=== PATIENT | female | born 1945 | race Caucasian/White ===

== ENCOUNTER 2016-08-10 08:16 | Emergency (ER) | payer MEDICARE, OTHER ==
[2016-08-10 08:47] VITALS: BP 117/68; PULSE 68; RESP 16; O2SAT 93
--- NOTE | 2016-08-10 09:11 | ED.REPORT ---
HPI-General Illness Date of Service August 10, 2016 ED Provider: Ronnie Solares MD Patient is a 70 year old female with a history of psychiatric illness who presents to the ED via EMS due to a mental health evaluation. The patient reports that she came to the hospital because she is "too far gone" and "can't live like this anymore". Patient states that she was anxious this morning and passed out when EMS arrived but EMS did not report any syncope. She states that she is freezing and her whole body including her feet are numb. The patient denies homicidal ideations or suicidal ideations. Patient reports hearing voices earlier today in her room. She is unable to give a pertinent medical history or complaint. Patient was detained by [facility] at [facility] in June for paranoid schizophrenia and psychosis. Nursing Notes Stated Complaint: ANXIETY Chief Complaint: Psychiatric Complaint Nursing Notes Reviewed: Yes Allergies: Coded Allergies: No Known Allergies (Verified , 02/04/08) General Time Seen by MD: 09:11 Chief Complaint Other (mental evaluation) Hx Obtained From: Patient Arrived By: Ambulance Onset Occurred: Onset unknown Similar Sx Previous: Yes Past Medical History Past Medical History unknown Ambulatory Status Independent Review of Systems Unable to Obtain ROS Patient condition, Mental status Physical Exam Vital Signs Vital Signs Date Time Temp Pulse Resp B/P Pulse Ox O2 Delivery O2 Flow Rate FiO2 08/10/16 13:51 70 08/10/16 08:47 36.3 68 16 117/68 93 Room Air Initial VS: Reviewed General/Constitutional: Awake, Alert Head / Eyes: Atraumatic, Normocephalic, PERRL, EOMI Respiratory / Chest: Atraumatic, Breath sounds NL, Breath sounds = bilat, No respiratory distress Cardiovascular: Heart rate NL, Regular rhythm, Heart sounds NL Skin: Atraumatic, Color NL, No rash, Warm, Dry Neurologic: Speech NL, No motor deficits, No sensory deficits motor and sensory was grossly normal tardive dyskinesia lip smaking Psychiatric: Not homicidal, Judgment/insight NL, Thought content NL Interpretation & Diagnostics Lab Results Interpretation Result Diagram: 08/10/16 0937 08/10/16 0937 Test 08/10/16 09:37 08/10/16 10:25 White Blood Count 12.0th/mm3 (3.8-10.1) Red Blood Count 3.75mil/mm3 (3.90-5.20) Hemoglobin 12.5g/dL (12.0-15.6) Hematocrit 37.4% (35.0-46.0) Mean Corpuscular Volume 99.7fL (81-100) Mean Corpuscular Hemoglobin 33.3pg (27.0-35.0) Mean Corpuscular Hemoglobin Concent 33.4% (32.0-37.0) Red Cell Distribution Width 13.0% (12.3-15.4) Platelet Count 225bil/L (150-400) Neutrophils (%) (Auto) 72.2% (40-74) Lymphocytes (%) (Auto) 16.1% (14-46) Monocytes (%) (Auto) 10.3% (4-12) Eosinophils (%) (Auto) 0.9% (0-5) Basophils (%) (Auto) 0.3% (0-3) Sodium Level 143mEq/L (134-144) Potassium Level 4.1mEq/L (3.5-5.2) Chloride Level 106mEq/L (97-108) Carbon Dioxide Level 23mmol/L (18-29) Blood Urea Nitrogen 15mg/dL (8-27) Creatinine 0.78mg/dL (0.57-1.00) Estimat Glomerular Filtration Rate 104mL/min (>59) Glucose Level 105mg/dL (60-99) Calcium Level 8.8mg/dL (8.5-10.1) Total Bilirubin 0.8mg/dL (0.0-1.2) Aspartate Amino Transf (AST/SGOT) 12U/L (0-50) Alanine Aminotransferase (ALT/SGPT) 9U/L (0-32) Alkaline Phosphatase 56U/L (25-165) Total Protein 6.2g/dL (6.4-8.4) Albumin 3.9g/dL (3.4-5.0) Thyroid Stimulating Hormone (TSH) 1.860uIU/mL (0.450-4.500) Hold Boyle Top Tube Received (Received) Alcohols < 10mg/dL (0-10) Hold Urine Received (Received) ECG Interpretation Time: 09:45 Interpreted by: ED physician Normal ECG Interpretation: Normal rate (70), Normal sinus rhythm Re-Eval/Medical Decision Med Decision/Clinical Course This patient is medically clear. She is seen and evaluated by her PACT mental health team and will be taken home by them. Return and follow-up precautions given Time of Eval: 10:14 Re-Evaluation/Progress Note: Patient was initially walking around and when entering the room, the patient states she felt weak and laid herself on the ground. Counseled Regarding: Diagnosis, Lab results Discharge & Departure Primary Impression: Acute situational disturbance Disposition: Home Discharge Condition All VS Reviewed: Yes Condition: Stable Additional Instructions: Follow-up with PACT team as planned. Return to ER for any new or concerning symptoms. Referrals: Alvarez Garay MD, PhD (PCP) Jonathan Attestation Portions of this note were transcribed by Giovanna Baca. I, Dr. Jeannie Childers personally performed the history, physical exam and medical decision-making; I reviewed and confirmed the accuracy of the information in the transcribed note. Signed by: Jonathan Naranjo, 08/10/16 and 2510 copies to: Alvarez Garay MD, PhD Ronnie Donovan DO August 10, 2016 09:11 Merlyn Baca August 10, 2016 09:27
[2016-08-10] MEDS ORDERED: LORazepam 1 mg Tablet PO ONE (09:20)
[2016-08-10 09:49] LABS: BASOPHILS % (AUTO) 0.3 % (0-3); EOSINOPHILS % (AUTO) 0.9 % (0-5); MONOCYTES % (AUTO) 10.3 % (4-12); Mean Corpuscular Hemoglobin 33.3 pg (27.0-35.0); Mean Corpuscular Volume 99.7 fL (81-100); NEUTROPHILS % (AUTO) 72.2 % (40-74); Platelet Count 225 bil/L (150-400)
[2016-08-10 13:51] VITALS: PULSE 70
[2016-08-11 11:53] LABS: APPEARANCE,URINE HAZY (CLEAR,HAZY); COLOR,URINE YELLOW (YELLOW)
[2016-08-11 11:54] LABS: OCCULT BLOOD,URINE NEGATIVE (NEGATIVE); PH,URINE 5.5 (5.0-8.0); UROBILINOGEN,URINE NORMAL (NORMAL)
== END 2016-08-10 13:52 | disposition home or self-care (01) ==
LOC: SED 08:16
DX: F43.0 Acute stress reaction (principal); F41.9 Anxiety disorder, unspecified; R20.0 Anesthesia of skin
CPT/HCPCS: 36415; 80053; 84443; 85025; 93005; 99284; G0480

== ENCOUNTER 2016-08-11 09:26 | Emergency (ER) | payer MEDICARE ==
--- NOTE | 2016-08-11 09:34 | ED.REPORT ---
HPI-Psychiatric Illness Date of Service August 11, 2016 ED Provider: Ronnie Donovan DO Patient is a 70 year old female with a history of psychiatric illness who returns to the emergency department today from [place] by EMS for altered mental status. The patient was seen here yesterday for similar symptoms and given Ativan. She was seen an evaluated by her PACT team who ended up taking her home. The patient is unable to provide much history at this time. She continually states, "take me back to [facility]." Patient was detained by [facility] at [facility] in June for paranoid schizophrenia and psychosis. Nursing Notes Stated Complaint: ALTERED MENTAL STATUS Nursing Notes Reviewed: Yes Allergies: Coded Allergies: No Known Allergies (Verified , 02/04/08) General Time Seen by MD: 09:29 Chief Complaint Bizarre behavior Hx Obtained From: Patient, EMS Unable to Obtain Hx: Patient condition, Mental status Arrived By: Ambulance Onset Occurred: Onset unknown Symptom Duration: Duration unknown Recent Healthcare: No recent hospitalization, Recent doctor visit Similar Sx Previous: Yes Risk-Psychiatric Illness Suicide Risk Stratification RF Statements: Risk factors reviewed Past Medical History Past Medical History Paranoid schizophrenia Psychosis Past Surgical History Unknown Smoking History Unknown if Ever Smoker Social History Lives at [place] Other Social History: Local resident Ambulatory Status Independent Review of Systems Unable to Obtain ROS Patient condition, Mental status Psychiatric: Reports: Change mental status Physical Exam Initial Vital Signs Vital Signs (First) Date Time Temp Pulse Resp B/P Pulse Ox O2 Delivery O2 Flow Rate FiO2 08/11/16 09:36 36.2 73 16 107/70 94 Room Air Initial VS: Reviewed Head / Eyes: Atraumatic, Normocephalic, PERRL ENT: Mucous membranes moist, Conjunctiva normal, No scleral icterus Neck: Supple, Non-tender, Full range of motion Respiratory: Breath sounds normal, Clear to auscultation, No respiratory distress Cardiovascular: Regular rate & rhythm, Heart sounds normal, Intact distal pulses Abdomen / GI: Soft, Non-tender, No guarding, No rebound, No distention Lymphatic: No lymphadenopathy Extremities: Vascular intact, Neuro intact, No swelling, No tenderness Skin: Warm, Dry, No cyanosis General/Constitutional: Awake histrionic, tearful, eyes closed. NEURO: Moving all 4 extremities Interpretation & Diagnostics Interpretation & Diagnostics: Urine dip negative Urine drug screen negative Lab Results Interpretation Result Diagram: 08/11/16 0955 08/11/16 0955 Test 08/11/16 09:55 08/11/16 12:03 White Blood Count 8.7th/mm3 (3.8-10.1) Red Blood Count 3.80mil/mm3 (3.90-5.20) Hemoglobin 12.4g/dL (12.0-15.6) Hematocrit 37.6% (35.0-46.0) Mean Corpuscular Volume 98.9fL (81-100) Mean Corpuscular Hemoglobin 32.6pg (27.0-35.0) Mean Corpuscular Hemoglobin Concent 33.0% (32.0-37.0) Red Cell Distribution Width 12.7% (12.3-15.4) Platelet Count 208bil/L (150-400) Neutrophils (%) (Auto) 64.0% (40-74) Lymphocytes (%) (Auto) 23.7% (14-46) Monocytes (%) (Auto) 9.2% (4-12) Eosinophils (%) (Auto) 2.6% (0-5) Basophils (%) (Auto) 0.3% (0-3) Sodium Level 144mEq/L (134-144) Potassium Level 4.2mEq/L (3.5-5.2) Chloride Level 107mEq/L (97-108) Carbon Dioxide Level 23mmol/L (18-29) Blood Urea Nitrogen 17mg/dL (8-27) Creatinine 0.73mg/dL (0.57-1.00) Estimat Glomerular Filtration Rate 113mL/min (>59) Glucose Level 104mg/dL (60-99) Calcium Level 8.7mg/dL (8.5-10.1) Total Bilirubin 0.4mg/dL (0.0-1.2) Aspartate Amino Transf (AST/SGOT) 14U/L (0-50) Alanine Aminotransferase (ALT/SGPT) 11U/L (0-32) Alkaline Phosphatase 50U/L (25-165) Total Protein 6.0g/dL (6.4-8.4) Albumin 3.7g/dL (3.4-5.0) Thyroid Stimulating Hormone (TSH) 1.670uIU/mL (0.450-4.500) Alcohols < 10mg/dL (0-10) Hold Urine Received (Received) Re-Eval/Medical Decision Med Decision/Clinical Course Patient is medically cleared. Patient is gravely disabled. Patient will be detained. Source of Hx: Old records, EMS Re-Evaluation/Progress : Time of Eval: 13:06 Re-Evaluation/Progress Note: The patient's PACT team is here to evaluate the patient. Consultation #1: Consulted With: shut off worker Call Returned at: 10:00 Note: Will contact the patient's PACT team Consultation #2: Consulted With: shut off worker Call Returned at: 15:13 Note: PACT spent 2 hours with the patient and were unable to get anywhere. PACT and ED radiation control worker agree with plan to page the [facility] to evaluate the patient. Counseled Regarding: Diagnosis, Lab results Discharge & Departure Impression: Primary Impression: Gravely disabled Discharge Condition All VS Reviewed: Yes Condition: Stable Referrals: Alvarez Garay MD, PhD (PCP) Care Transferred to: Dr. River Care Transferred at: 18:01 Jonathan Attestation Portions of this note were transcribed by Meredith Reid. I, Dr. Donovan personally performed the history, physical exam and medical decision-making; I reviewed and confirmed the accuracy of the information in the transcribed note. Signed by: Jonathan Yusuf, 08/11/2016 at 1800. copies to: Alvarez Garay MD, PhD Ronnie Donovan DO August 11, 2016 09:34 Meredith Reid August 11, 2016 09:39
[2016-08-11 09:36] VITALS: BP 107/70; PULSE 73; RESP 16; O2SAT 94
[2016-08-11] MEDS ORDERED: LORazepam 1 mg Tablet PO ONE ×3 (10:00→23:05)
[2016-08-11 10:06] LABS: BASOPHILS % (AUTO) 0.3 % (0-3); EOSINOPHILS % (AUTO) 2.6 % (0-5); MONOCYTES % (AUTO) 9.2 % (4-12); Mean Corpuscular Hemoglobin 32.6 pg (27.0-35.0); Mean Corpuscular Volume 98.9 fL (81-100); Platelet Count 208 bil/L (150-400)
[2016-08-11 15:14] VITALS: BP 123/70; PULSE 92; RESP 16; O2SAT 94
[2016-08-11 18:09] VITALS: BP 147/82; PULSE 104; RESP 22; O2SAT 96
[2016-08-11] MEDS ORDERED: Haloperidol 5 mg/mL Inj IM STA (20:18)
[2016-08-11 23:53] VITALS: BP 108/71; PULSE 72; RESP 16; O2SAT 93
== END 2016-08-12 00:23 | disposition other institution (70) ==
LOC: SED 09:26
DX: F23 Brief psychotic disorder (principal); F79 Unspecified intellectual disabilities; F20.0 Paranoid schizophrenia
CPT/HCPCS: 36415; 80053; 84443; 85025; 96372; 99285; G0480; J1630

== ENCOUNTER 2016-09-22 09:42 | Emergency (ER) | payer MEDICARE ==
[~2016-09-22] VITALS: Ht 165.1 cm; Wt 63.6 kg
[2016-09-22 09:46] VITALS: BP 129/87; PULSE 63; RESP 19; O2SAT 95
--- NOTE | 2016-09-22 09:52 | ED.REPORT ---
HPI-General Illness Date of Service Sep 22, 2016 ED Provider: Ronnie Donovan DO Patient is a 70 year old female with a hx of psychiatric illness, HTN, hypothyroid, and anxiety who presents to the ED via EMS from [facility] for the concern of new onset confusion. When EMS arrived she was naked, trying to run out of her room stating "I need to evacuate the animals ". Per EMS, she was combative en route. She is uncooperative upon exam and refuses to answer questions. She states "I need to let the animals out, the dogs and cats at [place]." She has been detained last June for Paranoid schizophrenia and psychosis. Nursing Notes Stated Complaint: CONFUSION Chief Complaint: Psychiatric Complaint Nursing Notes Reviewed: Yes Allergies: Coded Allergies: No Known Allergies (Verified , 02/04/08) General Time Seen by MD: 09:46 Chief Complaint Other (Confusion ) Hx Obtained From: EMS Arrived By: Ambulance Onset Occurred: Onset unknown Past Medical History Past Medical History Paranoid schizophrenia Psychosis HTN hypothyroid Past Surgical History Unknown Smoking History Unknown if Ever Smoker Social History Lives at [place] Other Social History: Local resident Ambulatory Status Independent Review of Systems Unable to Obtain ROS Uncooperative, Mental status Physical Exam Vital Signs Vital Signs Date Time Temp Pulse Resp B/P Pulse Ox O2 Delivery O2 Flow Rate FiO2 09/22/16 13:56 78 14 134/84 98 Room Air 09/22/16 09:46 36.9 63 19 129/87 95 Room Air Initial VS: Reviewed, Vital signs normal Head / Eyes: Atraumatic, Normocephalic Neck: Full range of motion Respiratory: Breath sounds normal, Clear to auscultation, No respiratory distress Skin: Warm, Dry General/Constitutional: Awake, Alert Behavior: Positive: Uncooperative Cardiovascular: Heart rate NL Abdomen: Atraumatic, Soft, Non-tender Back: Atraumatic Abnormal Mood/Affect: Positive: Flat affect Odd behavior. Continues to ask to let all the dogs out of [place]. Interpretation & Diagnostics Lab Results Interpretation Result Diagram: 09/22/16 1046 09/22/16 1046 Test 09/22/16 10:46 09/22/16 11:09 White Blood Count 8.6th/mm3 (3.8-10.1) Red Blood Count 4.11mil/mm3 (3.90-5.20) Hemoglobin 13.3g/dL (12.0-15.6) Hematocrit 39.7% (35.0-46.0) Mean Corpuscular Volume 96.6fL (81-100) Mean Corpuscular Hemoglobin 32.4pg (27.0-35.0) Mean Corpuscular Hemoglobin Concent 33.5% (32.0-37.0) Red Cell Distribution Width 12.9% (12.3-15.4) Platelet Count 252bil/L (150-400) Neutrophils (%) (Auto) 59.4% (40-74) Lymphocytes (%) (Auto) 27.1% (14-46) Monocytes (%) (Auto) 9.8% (4-12) Eosinophils (%) (Auto) 2.3% (0-5) Basophils (%) (Auto) 0.9% (0-3) Sodium Level 142mEq/L (134-144) Potassium Level 4.1mEq/L (3.5-5.2) Chloride Level 107mEq/L (97-108) Carbon Dioxide Level 21mmol/L (18-29) Blood Urea Nitrogen 18mg/dL (8-27) Creatinine 0.71mg/dL (0.57-1.00) Estimat Glomerular Filtration Rate 116mL/min (>59) Glucose Level 94mg/dL (60-99) Calcium Level 9.0mg/dL (8.5-10.1) Total Bilirubin 0.6mg/dL (0.0-1.2) Aspartate Amino Transf (AST/SGOT) 15U/L (0-50) Alanine Aminotransferase (ALT/SGPT) 12U/L (0-32) Alkaline Phosphatase 52U/L (25-165) Total Protein 6.7g/dL (6.4-8.4) Albumin 4.0g/dL (3.4-5.0) Thyroid Stimulating Hormone (TSH) 1.820uIU/mL (0.450-4.500) Alcohols < 10mg/dL (0-10) Urine Color Yellow (YELLOW) Urine Appearance Hazy (CLEAR,HAZY) Urine pH 6.5 (5.0-8.0) Urine Specific Oscar 1.010 (1.003-1.035) Urine Protein Negativemg/dL (NEG,TRACE) Urine Glucose (UA) Negativemg/dL (NEGATIVE) Urine Ketones Negativemg/dL (NEGATIVE) Urine Occult Blood Negative (NEGATIVE) Urine Nitrite Negative (NEGATIVE) Urine Bilirubin Negative (NEGATIVE) Urine Urobilinogen Normalmg/dL (NORMAL) Urine Leukocyte Esterase Negative (NEGATIVE) Urine RBC 0-2/hpf (0-2) Urine WBC 0-5/hpf (0-5) Urine Epithelial Cells Occasional/hpf (NONE-MOD) Urine Crystals None seen (NONE SEEN) Urine Bacteria None/hpf (NONE-FEW) Urine Hyaline Casts None/lpf (NONE) Urine Granular Casts None seen (NONE SEEN) Urine Waxy Casts None seen (NONE SEEN) Urine Red Blood Cell Casts None seen (NONE SEEN) Urine White Blood Cell Casts None seen (NONE SEEN) Urine Mucus None seen (None Seen) Urine Trichomonas None seen (NONE SEEN) Urine Yeast None (NONE SEEN) Urinalysis Comment Transitional epi Urine Culture Reflexed Not indicated Lab Results Interpretation: Urine tox negative Alcohol negative Re-Eval/Medical Decision Med Decision/Clinical Course Patient clearly needs to be detained. She is acutely psychotic. Patient has required multiple parenteral doses of medications for behavior. She has been accepted at an outside facility Time of Eval: 11:57 Re-Evaluation/Progress Note: Rechecked patient who has calmed down. Patient will be detained and is medically cleared. Time of Eval: 15:09 Re-Evaluation/Progress Note: Informed patient of richie. Consultation #1: Consulted With: project crew worker Call Returned at: 10:40 Note: Discussed patient's case. Social work will evaluate pt. Consultation #2: Consulted With: project crew worker, Mental health Call Returned at: 14:45 Note: Patient is scheduled to arrive at [facility] at 17:30 tonight. Counseled Regarding: Need for transfer Discharge & Departure Primary Impression: Psychosis Psychosis type: unspecified psychosis type Qualified Code: F29 - Unspecified psychosis not due to a substance or known physiological condition Disposition: Transfer, Psychiatric Inpt Discharge Condition All VS Reviewed: Yes Condition: Stable Referrals: OTHER,PHYSICIAN (PCP) Crit Care Except Billable Proc Time Spent: 30-74 minutes Services Performed: Patient management by me, Time spent at bedside, Reviewing test results Critical Care Notes: See MDM Scribe Attestation Portions of this note were transcribed by Dr. Kathy Waterman'Liseth personally performed the history, physical exam and medical decision-making; I reviewed and confirmed the accuracy of the information in the transcribed note. Signed by: José Antonio Tierney 09/22/16, 1510 Ronnie Donovan DO Sep 22, 2016 09:52 JOSÉ ANTONIO TIERNEY Sep 22, 2016 09:59
[2016-09-22 10:58] LABS: BASOPHILS % (AUTO) 0.9 % (0-3); EOSINOPHILS % (AUTO) 2.3 % (0-5); MONOCYTES % (AUTO) 9.8 % (4-12); Mean Corpuscular Hemoglobin 32.4 pg (27.0-35.0); Mean Corpuscular Volume 96.6 fL (81-100); NEUTROPHILS % (AUTO) 59.4 % (40-74); Platelet Count 252 bil/L (150-400)
[2016-09-22] MEDS ORDERED: OLANZapine Zydis ODT 5 mg Tablet PO ONE (11:25)
[2016-09-22 11:29] LABS: APPEARANCE,URINE HAZY (CLEAR,HAZY); COLOR,URINE YELLOW (YELLOW); OCCULT BLOOD,URINE NEGATIVE (NEGATIVE); PH,URINE 6.5 (5.0-8.0); UROBILINOGEN,URINE NORMAL (NORMAL)
[2016-09-22] MEDS ORDERED: Haloperidol 5 mg/mL Inj IM ONE (11:40)
[2016-09-22 13:56] VITALS: BP 134/84; PULSE 78; RESP 14; O2SAT 98
[2016-09-22] MEDS ORDERED: Ondansetron 8 mg ODT Tablet PO ONE (15:20)
[2016-09-22] MEDS ORDERED: LORazepam 2 mg Tablet PO ONE (15:40)
[2016-09-22 17:18] VITALS: PULSE 82; RESP 19; O2SAT 96
== END 2016-09-22 17:20 | disposition other institution (70) ==
LOC: EDBD 09:42 → SED 09:42
DX: F29 Unspecified psychosis not due to a substance or known physiological condition (principal); I10 Essential (primary) hypertension; E03.9 Hypothyroidism, unspecified; F41.9 Anxiety disorder, unspecified; F20.0 Paranoid schizophrenia
CPT/HCPCS: 36415; 80053; 81000; 84443; 85025; 96372; 99291; G0480; J1200; J1630; J2060

== ENCOUNTER 2016-10-09 10:51 | Inpatient (IN) | payer MEDICARE ==
[2016-10-09 11:05] VITALS: BP 113/68; PULSE 56; RESP 20; O2SAT 93
--- NOTE | 2016-10-09 11:19 | ED.REPORT ---
HPI-General Illness Date of Service Oct 09, 2016 ED Provider: Mary Grace River MD Patient is a 71 year old female with a history of hypertension, depression, paranoid schizophrenia and psychosis who presents to the ED via EMS after calling 911 because she has "given up". The patient was seen for similar problems on 09/22/16 with [facility] and transfer to [facility] at that time. The patient complains of abdominal pain and the inability to urinate since she returned home. She denies rash, shortness of breath, swelling, nausea, vomiting or any other symptoms at this time. She reports that she has been taking her medications and needs to go back to [facility]. The patient states that "the traffic has been keeping her awake" and she is "dying". Records from [facility] show that the patient has a LRO set to on . She was detained on 09/17/16 before she went to [facility] and had a court date on 10/04/16. Before discharge the patient appeared agitated after court at which time she was offered more voluntary time but the patient declined and let AMA. Patient has a PACT team, which was asked to support the client in making an appointment with her regular physician for follow up. Nursing Notes Stated Complaint: CONFUSION Chief Complaint: Psychiatric Complaint Nursing Notes Reviewed: Yes Allergies: Coded Allergies: No Known Allergies (Verified , 10/09/16) General Time Seen by MD: 11:19 Chief Complaint Abdominal pain Hx Obtained From: Patient Unable to Obtain Hx: Patient condition, Mental status Arrived By: Ambulance Onset Occurred: Onset unknown Location: : Abdomen Recent Healthcare: No recent hospitalization, Recent doctor visit Past Medical History Past Medical History Paranoid schizophrenia Psychosis HTN hypothyroid Past Surgical History Unknown Smoking History Unknown if Ever Smoker Social History Lives at [place] Other Social History: Local resident Ambulatory Status Independent Review of Systems Unable to Obtain ROS Patient condition, Mental status Full Review of Systems Constitutional: Denies: Chills, Fever Respiratory: Denies: Non-productive cough, Shortness of breath GI: Reports: Abdominal pain, Denies: Nausea, Vomiting Female: Reports: Urination decreased Skin: Denies Itching, Denies Rash Neurologic: Denies: Numbness, Weakness Complete sys rev & neg: except as marked. Physical Exam Vital Signs Vital Signs Date Time Temp Pulse Resp B/P Pulse Ox O2 Delivery O2 Flow Rate FiO2 7/29/17 11:05 36.4 56 20 113/68 93 Room Air Initial VS: Reviewed General/Constitutional: Awake, Alert Head / Eyes: Atraumatic, Normocephalic, PERRL, EOMI Respiratory / Chest: Atraumatic, Breath sounds NL, Breath sounds = bilat, No respiratory distress Cardiovascular: Heart rate NL, Regular rhythm, Heart sounds NL Abdomen: Atraumatic, Soft complains of subjective pain but can't point to where Lower Extremity / Pelvis / MS: Atraumatic, No edema Skin: Atraumatic, Color NL, No rash, Warm, Dry Neurologic: Speech NL, No motor deficits, No sensory deficits minimally interactive repeatedly states she is dying Interpretation & Diagnostics Lab Results Interpretation Result Diagram: 10/09/16 1235 10/09/16 1235 Test 10/09/16 12:35 White Blood Count 6.7th/mm3 (3.8-10.1) Red Blood Count 4.14mil/mm3 (3.90-5.20) Hemoglobin 13.8g/dL (12.0-15.6) Hematocrit 39.8% (35.0-46.0) Mean Corpuscular Volume 96.1fL (81-100) Mean Corpuscular Hemoglobin 33.3pg (27.0-35.0) Mean Corpuscular Hemoglobin Concent 34.7% (32.0-37.0) Red Cell Distribution Width 12.1% (12.3-15.4) Platelet Count 235bil/L (150-400) Neutrophils (%) (Auto) 55.0% (40-74) Lymphocytes (%) (Auto) 32.9% (14-46) Monocytes (%) (Auto) 8.6% (4-12) Eosinophils (%) (Auto) 2.8% (0-5) Basophils (%) (Auto) 0.6% (0-3) Sodium Level 143mEq/L (134-144) Potassium Level 4.3mEq/L (3.5-5.2) Chloride Level 107mEq/L (97-108) Carbon Dioxide Level 22mmol/L (18-29) Blood Urea Nitrogen 12mg/dL (8-27) Creatinine 0.73mg/dL (0.57-1.00) Estimat Glomerular Filtration Rate 112mL/min (>59) Glucose Level 97mg/dL (60-99) Calcium Level 9.2mg/dL (8.5-10.1) Total Bilirubin 0.5mg/dL (0.0-1.2) Aspartate Amino Transf (AST/SGOT) 14U/L (0-50) Alanine Aminotransferase (ALT/SGPT) 11U/L (0-32) Alkaline Phosphatase 55U/L (25-165) Total Protein 6.5g/dL (6.4-8.4) Albumin 4.4g/dL (3.4-5.0) Thyroid Stimulating Hormone (TSH) 1.410uIU/mL (0.450-4.500) Hold Boyle Top Tube Received (Received) Alcohols < 10mg/dL (0-10) Discharge & Departure Shift Change Sign-Out Patient Care Transferred: Yes Discussed Complaint(s): Yes Departure Notes Currently under an LRO until 10/12. was at [facility] until 2 days ago. Was cleared after her court date and then left AMA. She was offered the option to continue to stay because they did not feel she was quite ready to leave. She now comes back. the most that I can get from her is that she would like to go back. Labs are unremarkable. marketing services coordinator are working on contacting all available resources to see what is available for her, including the possibility of a return to [facility] Primary Impression: Schizophrenia Discharge Condition All VS Reviewed: Yes Condition: Stable Referrals: OTHER,PHYSICIAN (PCP) Care Transferred to: Dr. Morelos Care Transferred at: 15:00 Scribe Attestation Portions of this note were transcribed by Giovanna Baca. I, Dr. River personally performed the history, physical exam and medical decision-making; I reviewed and confirmed the accuracy of the information in the transcribed note. Signed: Jonathan Naranjo, 10/09/2016 Mary Grace River MD Oct 09, 2016 11:19 JOSÉ ANTONIO GUPTA Oct 09, 2016 11:57
[2016-10-09 12:45] LABS: BASOPHILS % (AUTO) 0.6 % (0-3); EOSINOPHILS % (AUTO) 2.8 % (0-5); MONOCYTES % (AUTO) 8.6 % (4-12); Mean Corpuscular Hemoglobin 33.3 pg (27.0-35.0); Mean Corpuscular Volume 96.1 fL (81-100); Platelet Count 235 bil/L (150-400)
[2016-10-09 15:17] VITALS: BP 147/86; PULSE 76; RESP 20; O2SAT 97
[2016-10-09 17:58] VITALS: BP 115/79; PULSE 77; RESP 20; O2SAT 99
[2016-10-09 19:35] LABS: APPEARANCE,URINE CLEAR (CLEAR,HAZY); COLOR,URINE STRAW (YELLOW); OCCULT BLOOD,URINE NEGATIVE (NEGATIVE)
[2016-10-09 19:36] LABS: UROBILINOGEN,URINE NORMAL (NORMAL)
[2016-10-09 20:58] VITALS: BP 119/79; PULSE 62; RESP 19; O2SAT 93
[2016-10-10 06:39] VITALS: BP 114/68; PULSE 65; RESP 16; O2SAT 94
[2016-10-10] MEDS ORDERED: METO25TA6 PO (09:51)
[2016-10-10] MEDS ORDERED: OLAN10TA19 PO (09:51)
[2016-10-10] MEDS ORDERED: OLAN2.5T20 PO (09:51)
[2016-10-10] MEDS ORDERED: AMLO5TAB2 PO (09:51)
[2016-10-10] MEDS ORDERED: LEVO50TA6 PO (09:51)
[2016-10-10] MEDS ORDERED: LORA0.5T PO (09:51)
[2016-10-10 12:44] VITALS: BP 103/70; PULSE 67; RESP 18; O2SAT 95
[2016-10-10] MEDS ORDERED: Magnesium Hydroxide 10 mL Oral Concentration PO PRN (14:25)
[2016-10-10] MEDS ORDERED: Alum-Mag Hydrox-Simeth 30 mL Suspension PO PRN (14:25)
[2016-10-10] MEDS ORDERED: Benzocaine-Menthol Lozenge 2/Pkg MT PRN (14:25)
[2016-10-10 16:03] VITALS: BP 103/70; PULSE 67; RESP 18; O2SAT 95
--- NOTE | 2016-10-10 17:37 | NUR ---
[id number]. nurs. Admit note. 71 y.o. female admitted to [facility] from [facility] ED at 1610. Pt recently left [facility] AMA on LR0 that expires 10/12 and returned home to [facility]. Pt phoned 911 reporting SI with delusional and PI.(pt screaming re "end of world coming" people are being killed in streets,.. I'm dying.. why are the in the hospital.." and brought to the ED via EMT last night. Pt evaluated and detained on petition to revoke at 10/09 at 2014. Pt has long hx of schizophrenia and 5 [facility] hosp.s and repeated revocations in 2017. [facility] On admission to [facility] pt speaking in lucid manner about her hx of 40 yr marriage loss of her spouse 6 yrs ago and that she had no children how lonely she is and that trip to visit sibs in [place] had not worked out because of their health and her own travel difficulties. Addendum: 10/10/16 at 1838 by DONNY ALONSO RN Pt appearing comfortable on the unit and interacting with peers. Pt stating that she does not like the bad things that she sees happening on TV. Pt appearing to like the socializing with others. Pt eating dinner and her PACT CM has been notified to bring in pt's dentures.
[2016-10-10 20:45] VITALS: PULSE 64
[2016-10-10] MEDS ORDERED: LORazepam 0.5 mg Tablet PO ONE (21:00)
--- NOTE | 2016-10-11 06:01 | NUR ---
public welfare director [id number] Pt participated in wrap up group and had no behavioral issues or outburst noted. Pt very pleasant and speaking clearly about medication needs. Pt took all HS meds to include Trazodone 50mg, when Pt stated, "I am having a hard time falling to sleep." Pt slept 7 hrs uninterrupted. Continue to monitor for mood changes, emotional wellbeing, and q15min checks for safety. Care continues.
--- NOTE | 2016-10-11 16:23 | HP ---
[address] [address] HISTORY AND PHYSICAL PATIENT: MARITA CARPIO : 1945 MR#: [id number] ADMIT: 10/10/2016 JOB ID: [id number] DATE: 10/11/2016 IDENTIFICATION OF PATIENT: The patient is a 71-year-old female who reportedly was admitted due to a concern of recent decompensation of care of self. The patient reportedly has a previous history of paranoid schizophrenia and receives current services through the PAC team of [facility]. The patient was brought into the emergency department after significant concerns were expressed by EMS whom she had actually called because she was reportedly giving up. During the emergency department intervention, the patient had made significant delusional commentaries, indicating that the traffic was keeping her awake and that she was dying. Per report, the patient most recently was hospitalized and released at [facility]. She was detained September 17 through , but elected to sign in on a voluntary basis and left AMA shortly thereafter. CHIEF COMPLAINT: "I have been feeling really uptight." This is per patient report. HISTORY OF PRESENT ILLNESS: As stated above, the patient is a 71-year-old female who reportedly was previously admitted to the mental health unit at [facility] in 2007. At that time, the patient's history was noted for diagnosis of schizophrenia with a prior history of repeated hospitalizations in the states of [place] and [place]. The patient is originally from [place], [place]. The patient reportedly lost her in 2007 during the course of hospitalization and became catatonic with no significant resolution. The patient was later then transferred to [facility]. Most recently, the patient was hospitalized and discharged from [facility]. She reportedly was on an LR90 which is set to as of tomorrow, October 12, 2016. The patient is currently connected with the PAC team and sees upper caser, Chiki, one time per week and also is monitored with her medications by Dr. Manzano. In reviewing additional history, the patient states that she reportedly moved to the [facility] within the past several months. Prior to such, she lived in [place] for many years, up to 20, with her of prior. Her is . She has no children. She indicated that she had planned on making the trip to [place], [place] this summer but, unfortunately, things fell apart. She denied any difficulties with current depression. She denied any evidence of suicidal ideation. She indicated that she does feel that she has been very uptight and not able to do the things that she normally does. She admitted to a significant history of not taking care of herself. It is unknown whether she has lost any weight specifically. CURRENT MEDICATION: Management involves doses of: 1. Levothyroxine 50 mcg daily. 2. Olanzapine 2.5 mg q.a.m., 10 mg q.h.s. 3. Ativan 0.5 mg q.h.s. 4. Metoprolol 25 mg b.i.d. 5. Amlodipine. PAST MEDICAL HISTORY: Substantial for a history of hypertension, hypothyroidism. Current medications as noted above. She denies any recent surgeries, fractures. Other history was reviewed through the emergency report and I agree with findings. PAST PSYCHIATRIC HISTORY: Substantial for the above information. SOCIAL HISTORY: Currently, the patient lives independently in a [facility]. She has no direct relatives in the [facility]. She indicates that she does have an older sister who has been diagnosed with Parkinson's syndrome living in the [facility]. There is no assignment of guardianship noted. She denies any routine usage of alcohol substances. Trauma history was not reviewed. FAMILY HISTORY: Positive for history of depression in the mother. Patient indicates that she recalls that she had received treatment. She is unable to recall if she was ever hospitalized. DEVELOPMENTAL HISTORY: Reportedly, the patient graduated from high school in [place]. 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 MENTAL STATUS EXAM: General appearance: The patient was cooperative, polite. She maintained good eye contact throughout. She denied any evidence of current suicidal, homicidal ideation. Her speech was of normal tone, frequency, and volume. Her mood was neutral. Her affect was congruent. Her thought process showed no evidence of racing thoughts, flight of ideas, loose or disconnected thinking. Her thought content: She denied any evidence of current suicidal, homicidal ideation. No evidence of active hallucinations, delusions. She was alert, oriented to person, place, time, situation. Her attention and concentration were intact. Memory intact in the short term, truck terminal manager, recent. Insight and judgment were fair. PHYSICAL EXAMINATION: Completed through the emergency department. ASSESSMENT: [place] I 1. Schizophrenia, paranoid type. 2. Rule out major neurocognitive disorder, not otherwise specified. [place] II Deferred. [place] II IHistory of hypertension, hypothyroidism. [place] IV Stressors are noted for chronic mental health issues, transition of life. [place] V Global Assessment of Functioning current 30. PLANS: 1. Recommendations for continuation of all medications noted. 2. Recommendations for information to be gathered from the PAC team in reference to her current status of compliance with medications, interventions. 3. Recommendations for probable discharge within the next 2-3 days based on limited need for continuation of hospitalization. DEJAH
--- NOTE | 2016-10-11 18:55 | NUR ---
NURS NOTE DAY Pt has been appropriate with staff and peers much of the day. Expressed anxiety about meeting with doctor in the AM. Reports nausea and vomiting. Staff observed pt producing small amounts of straw colored emesis. Unclear if this was self-induced vomiting, following medication administration. Continue to monitor.
--- NOTE | 2016-10-11 20:14 | NUR ---
Obs Dayshift Pt was calm, quiet and reasonable in the morning. Just before dinner she became irritable, demanding, labile, and loud. Pt was stating that she was throwing up, no body was helping her, that she needed certain snacks/dinners. Pt is yelling at staff from her bed about being very cold, but laying on top of her bed and not getting under the covers. Demanding extra clothing and upset at staff because it isn't thick enough or warm enough. Pt refusing to eat dinner because she states that she was chocking on it due to not having her dentures. PACT was called and might have staff available Tuesday to go get her things from home. Pt is hopeless, helpless, labile, and irritable. Good ADL's, Ok meals
[2016-10-11] MEDS: LORazepam 0.5 mg Tablet PO SCH (20:27)
--- NOTE | 2016-10-12 04:39 | NUR ---
Nursing, NOC 7pm-7am Patient visible in room and on unit. Approached nurse's station at begin of shift, "I'm cold, I want my medications!" temp obtained: 36.7, b/p 129/83. Additional blanket given. Anxious affect. Cooperative w/ cares. Slept well thru the NOC. Continue Q15 safety and room checks thru the NOC.
[2016-10-12 09:00] VITALS: BP 129/83
--- NOTE | 2016-10-12 14:45 | PROG NOTE ---
[address] [address] PROGRESS NOTE PATIENT: MARITA CRAPIO : 1945 MR#: [id number] ADMIT: 10/10/2016 JOB ID: [id number] DATE: 10/12/2016 CHIEF COMPLAINT: "I cannot handle being around these people, that heavyset woman is driving me nuts." This per patient report. HISTORY OF PRESENT ILLNESS: As stated above, the patient identified some significant difficulty with other clients on the unit. She indicated that it is making her more anxious and that she feels that she would be better off back in her own apartment. She has shown significant improvement with gains of insight into alternative coping. She readily identifies that she had previously place calls with 911 due to factors of anxiety and indicated that she is willing to continue with her current medication management and PACT team workers. She currently denies any evidence of significant imminent danger and has shown no concerns of inability to care for herself. OBJECTIVE: On mental status examination, she was bright, cooperative, interactive. She maintained good eye contact. Her speech was of normal tone, frequency and volume. Her mood was neutral. Affect was congruent. Her thought process showed no evidence of random flight of ideas, loose or disconnected thinking. Thought content: No evidence of current suicidal or homicidal ideation. No evidence of active hallucinations, delusions. She was alert, oriented to time and place. Attention and concentration intact. Memory intact in the short term, fpc, recent. Insight and judgment are fair. PHYSICAL EXAM: Vital signs are unlisted for today. Previous documentation of yesterday with temperature at 36.2, pulse 67, respirations 18, BP 103/70. MEDICATION REVIEW: Includes: 1. Synthroid 50 mcg daily. 2. Ativan 0.5 mg q.h.s. 3. Zyprexa 10 mg q.h.s. 4. Norvasc 5 mg daily. 5. Lopressor 25 mg b.i.d. 6. Zyprexa 2.5 mg q.a.m. ASSESSMENT: AXIS I 1. Schizophrenia, paranoid type. 2. Major neurocognitive disorder, not otherwise specified. AXIS II Deferred. AXIS III 1. History of hypothyroidism with replacement. 2. History of hypertension. AXIS IV Stressors are noted for transition of life. AXIS V Global assessment of functioning of current 40. PLAN: 1. Recommendations to discharge tomorrow with continuation of outpatient care provided by the PACT team. 2. Continuation of all medications noted. AFIAD
--- NOTE | 2016-10-12 17:17 | NUR ---
Obs Dayshift Pt is very labile, yelling and demanding toward staff then smiling, calm, and appreciative. Pt becomes upset most meal times, about what the food is or the amount, or how it is cooked. Pt is argumentative w/ staff and peers. Yelling at a peer to shut her mouth during lunch, and left the dining area. Pt is disorganized, irritable, demanding. Ok ADL's, Ok meals
--- NOTE | 2016-10-12 18:13 | NUR ---
NURS NOTE DAY Mood: "It's great." Denies depression, anxiety. Affect: Irritable. Thought Process/Content: "I know what made me vomit last night. It was the hot chocolate." Linear, linked. Denies AH, VH. Denies SI, HI. Behavior: Pt was irritable with staff and peers this morning and lunchtime, telling another pt to shut up. Pt later demanded snack because she hadn't been able to eat her whole lunch because of the other pts. Pt was angry when told she needed to wait one hour until snack time. Pt later apologized to staff for her behavior and has maintained behavioral control since. PRNs/NURS: At 1300 pt reports vomiting after lunch, this was not observed by staff. Pt denies any vomiting or nausea since 1300.
[2016-10-12] MEDS: LORazepam 0.5 mg Tablet PO SCH (21:09)
--- NOTE | 2016-10-13 09:51 | PCM.DIMED ---
Discharge Instructions Date of Service Oct 13, 2016 Dates of Hospitalization Oct 10, 2016 at 14:31 Discharge Diagnosis Discharge Diagnosis Schizophrenia Paranoid type Major Neurocognitive DO NOS Diet Discharge Diet: No restrictions Activity Discharge Activity: No restrictions Emerson Sullivan DO Oct 13, 2016 09:51
[2016-10-13] MEDS ORDERED: OLAN10TA19 PO (09:55)
[2016-10-13] MEDS ORDERED: LEVO50TA6 PO (09:55)
[2016-10-13] MEDS ORDERED: OLAN2.5T20 PO (09:55)
--- NOTE | 2016-10-13 10:59 | NUR ---
News Internship The patient will discharge today back to her home. Forge Shop Supervisor spoke to Chiki from the PACT team and follow up appointment were made. The patient has medication drop offs on a daily basis from the PACT team and will also be meeting with Mery Peralta on 10-19-16 @ 2pm. She denies any SI at this time.
--- NOTE | 2016-10-13 12:43 | DIS ---
[address] [address] DISCHARGE SUMMARY PATIENT: MARITA CARPIO : 1945 MR#: [id number] ADMIT: 10/10/2016 JOB ID: [id number] DIS: ADMITTING DIAGNOSES: AXIS I: 1. Schizophrenia, paranoid type. 2. Rule out major neurocognitive disorder, not otherwise specified. AXIS II: Deferred. AXIS III: 1. History of hypertension. 2. History of hypothyroidism. AXIS IV: Stressors are noted for chronic mental health issues, transition of life. AXIS V: Global Assessment of Functioning, current 30. DISCHARGE DIAGNOSES: AXIS I: 1. Schizophrenia, paranoid type. 2. Major neurocognitive disorder, not otherwise specified. AXIS II: Deferred. AXIS III: 1. History of hypertension. 2. History of hypothyroidism. AXIS IV: Stressors are noted for chronic mental health issues, transition of life. AXIS V: Global Assessment of Functioning, current 40. REASON FOR ADMISSION: Patient is a 71-year-old female who was admitted under EDGAR status with revocation of LR 90. The patient reportedly was recently detained at [facility] and released on an LR but elected to sign in on a voluntary basis short-term and eventually left AMA thereafter. During the course of hospitalization, the patient was agreeable to continue with her current medication regimens including Zyprexa 2.5 mg q.a.m., 10 mg q.h.s., Ativan 0.5 mg q.h.s., metoprolol 25 mg b.i.d. and amlodipine 5 mg daily as well as levothyroxine 50 mcg daily. Throughout hospital course, patient openly identified that she was struggling with feeling unsafe in her home environment. She reported that she recently had transitioned from the [facility] to [place] and was living in a new supportive assisted environment and was concerned about being overwhelmed with noises including traffic. During the course of hospitalization, the patient stabilized very quickly. She participated in both individual and group therapy complements with gains of insight into the need of alternative coping. She reported that she was willing to continue with her PACT Team care providers including bottle caser and medication management. There was no evidence of imminency of danger. No evidence of status of grave disability. There was noted significant difficulties with significant decline of function of cognition including memory gaps as it was felt that the patient more than likely is experiencing onset of dementia symptoms. There were no grounds to continue her hospitalization and the patient was released on maintenance of LR 90. CONDITION AT TIME OF DISCHARGE/MENTAL STATUS EXAMINATION: She was cooperative, polite. She maintained good eye contact throughout. Her speech was of normal tone, frequency, and volume. Her mood was neutral. Affect was congruent. She denied any evidence of current suicidal, homicidal ideation. No evidence of active hallucinations or delusions. She was alert, oriented to person, place, time, situation. Her memory was impaired in short-term, custodial, and recent. Her insight and judgment were fair. DISCHARGE PLANS: Include: 1. Follow up with her care providers through the PACT Team including appointment with Mery Glaser, nurse practitioner, scheduled for October 19, 2016. 2. Also follow up with her bottle caser, Chiki Moise to be determined. 3. Continuation of all medications. Prescriptions were given for one month supply, including levothyroxine 50 mcg daily one month supply, no refills. Reason for usage: Replacement. 4. Continuation of Zyprexa 2.5 mg q.a.m., 10 mg q.h.s., one month supply, no refills. Reason for usage: Antipsychotic. 5. Continuation Ativan 0.5 mg q.h.s. one month supply, no refills. Reason for usage: Anti-anxiety. 6. Continuation of metoprolol 25 mg b.i.d. one month supply, no refills. Reason for usage: Antihypertensive. 7. Continuation of amlodipine 5 mg daily, one month supply, no refills. Reason for usage: Hypertension. 8. Patient was encouraged to follow up with her PCP for continuation of medication management as related to previous history of hypertension and hypothyroidism. DEJAH
--- NOTE | 2016-10-13 15:47 | NUR ---
[id number]. nurs. Discharge note. Pt verbalizing understanding of her discharge plan and med list . Pt receives meds daily from PACT team and prescription faxed to Chiki Walls CM at PACT. Pt remembering that her appointment was on 10/19/16. Pt stated she was looking forward to going home and anxious that all details in discharge plan be in place. Pt denying other concerns, affect neutral, with some apprehension re discharge but not reluctant to leave. Pt discharged by cab at 1315.
[2016-10-13 16:25] VITALS: BP 118/85; PULSE 73; RESP 20
== END 2016-10-13 13:15 | disposition home or self-care (01) | DRG 885 ==
LOC: SED 10:51 → EDUNIT# 10:51 → EDBD 10:51 → MHC 10-10 14:31
PROVIDERS: ADMIT Psychiatry & Neurology Psychiatry; ATTEND Psychiatry & Neurology Psychiatry
DX: F20.0 Paranoid schizophrenia (principal); F01.50 Vascular dementia, unspecified severity, without behavioral disturbance, psychotic disturbance, mood disturbance, and anxiety; Z91.19 Patient's noncompliance with other medical treatment and regimen

== ENCOUNTER 2016-12-09 11:19 | Emergency (ER) | payer MEDICARE, OTHER ==
[~2016-12-09] VITALS: Ht 172.7 cm; Wt 81.8 kg
[~2016-12-09 11:19] MED LIST: AMLO5TAB2 PO; LEVO50TA6 PO; METO25TA6 PO; MULT-666 PO; OLAN10TA19 PO; OLAN2.5T28 PO
[2016-12-09 11:25] VITALS: BP 141/80; PULSE 56; RESP 21; O2SAT 97
--- NOTE | 2016-12-09 11:29 | ED.REPORT ---
HPI-Psychiatric Illness Date of Service Dec 09, 2016 ED Provider: Emily Henley MD Patient is a 71 year old female with a hx of paranoid schizophrenia and psychosis who presents to the ED via EMS from [facility] s/p supposedly ingesting 2 days worth of her morning and evening medications. It is believed she took Olanzapine 25mg, Trazadone 100mg, Metoproloil 100mg, amlodipine 10mg, and Levothyroxine 50mg. EMS reports she stated she did not try to kill herself. Pt states she only took what she was given to her and it "got the best" of her. Pt complains of associated dull, mid-sternal chest pain onset this morning that radiates to her "whole body" and nausea. She denies headache, abdominal pain, vomiting, or any other symptoms. Nursing Notes Stated Complaint: DECREASED LOC Chief Complaint: Psychiatric Complaint Nursing Notes Reviewed: Yes Allergies: Coded Allergies: No Known Allergies (Verified , 10/09/16) Scheduled Amlodipine (Amlodipine) 5 Mg Tablet 5 MG PO QAM Levothyroxine (Levothyroxine) 50 Mcg Tablet 50 MCG PO q7am Metoprolol Tartrate (Metoprolol Tartrate) 25 Mg Tablet 37.5 MG PO BID Olanzapine (Olanzapine) 2.5 Mg Tablet 2.5 MG PO QAM Olanzapine (Olanzapine) 10 Mg Tablet 10 MG PO HS Miscellaneous Medications Multivitamin (Once Daily) 1 Each Tablet 1 EACH PO General Time Seen by MD: 11:27 Chief Complaint Drug ingestion-accidental Hx Obtained From: Patient, EMS Arrived By: Ambulance Onset Occurred: Just prior to arrival Location: : Chest Quality: Dull Radiation: Radiation present Immunizations: Unknown Recent Healthcare: Recent doctor visit Risk-Psychiatric Illness Suicide Risk Stratification Suicide Risk Factors - Adult: : Prior psych admission RF Statements: Risk factors reviewed Past Medical History Past Medical History Paranoid schizophrenia Psychosis HTN hypothyroid Past Surgical History Unknown Smoking History Unknown if Ever Smoker Social History Lives at [facility] Other Social History: Local resident Ambulatory Status Independent Review of Systems Review of Systems Note: +ingestion of medication Cardiovascular: Reports: Chest pain GI: Reports: Nausea, Denies: Abdominal pain, Vomiting Neurologic: Denies: Headache Psychiatric: Denies: Suicidal ideation Complete sys rev & neg: except as marked. Physical Exam Initial Vital Signs Vital Signs (First) Date Time Temp Pulse Resp B/P Pulse Ox O2 Delivery O2 Flow Rate FiO2 9/28/17 11:25 36.7 56 21 141/80 97 Room Air 12/09/16 12:04 2 Initial VS: Reviewed, Vital signs abnormal Head / Eyes: Atraumatic, Normocephalic Neck: Full range of motion Respiratory: Breath sounds normal, Clear to auscultation, No respiratory distress Abdomen / GI: Soft, Non-tender Skin: Warm, Dry General/Constitutional: Not toxic appearing Opens eyes Neurologic: Speech NL Psychiatric: Mood NL, Not suicidal ENT: Airway patent Gag reflux present Cardiovascular: Regular rhythm, Heart sounds NL Heart Rate / Rhythm: Positive: Bradycardia Interpretation & Diagnostics Lab Results Interpretation Result Diagram: 12/09/16 1130 12/09/16 1130 Test 12/09/16 11:30 White Blood Count 8.6th/mm3 (3.8-10.1) Red Blood Count 4.08mil/mm3 (3.90-5.20) Hemoglobin 13.3g/dL (12.0-15.6) Hematocrit 39.6% (35.0-46.0) Mean Corpuscular Volume 97.1fL (81-100) Mean Corpuscular Hemoglobin 32.6pg (27.0-35.0) Mean Corpuscular Hemoglobin Concent 33.6% (32.0-37.0) Red Cell Distribution Width 12.7% (12.3-15.4) Platelet Count 232bil/L (150-400) Neutrophils (%) (Auto) 52.1% (40-74) Lymphocytes (%) (Auto) 34.5% (14-46) Monocytes (%) (Auto) 10.0% (4-12) Eosinophils (%) (Auto) 2.6% (0-5) Basophils (%) (Auto) 0.6% (0-3) Sodium Level 140mEq/L (134-144) Potassium Level 4.2mEq/L (3.5-5.2) Chloride Level 105mEq/L (97-108) Carbon Dioxide Level 25mmol/L (18-29) Blood Urea Nitrogen 23mg/dL (8-27) Creatinine 0.85mg/dL (0.57-1.00) Estimat Glomerular Filtration Rate 94mL/min (>59) Glucose Level 96mg/dL (60-99) Calcium Level 8.7mg/dL (8.5-10.1) Magnesium Level 2.0mg/dL (1.6-2.6) Total Bilirubin 0.5mg/dL (0.0-1.2) Aspartate Amino Transf (AST/SGOT) 17U/L (0-50) Alanine Aminotransferase (ALT/SGPT) 10U/L (0-32) Alkaline Phosphatase 54U/L (25-165) Total Protein 6.8g/dL (6.4-8.4) Albumin 4.3g/dL (3.4-5.0) Thyroid Stimulating Hormone (TSH) 2.220uIU/mL (0.450-4.500) ECG Interpretation ECG Interpretation: Sinus Bradycardia rate 56 increased QT at [address],T changes Time: 11:27 Interpreted by: ED physician Re-Eval/Medical Decision Med Decision/Clinical Course The patient presents stating she took more medications than usual, she is a one called 911. Upon arrival here the patient denied saying she took her usual medications which she is handed daily. Is observed and did not have any abnormalities in her vital signs that were concerning. The patient stated she is not suicidal and her only physical complaints was generalized weakness. Initially she said she couldn't move any of her limbs however she did move him without any difficulty and was able to stand and walk. The patient has unknown history of mental illness and given she was not acutely suicidal she was felt safe for discharge. Upon arrival of her Tuesday stated that this was very unusual behavior for her and they could not take her back to the independent living facility. They state that she's been having these cycles about every 6-8 weeks where she needs her medications adjusted. When she is stable she is able to fully function and is cooperative and can care for herself. They do not feel that she can currently care for herself. The patient has a PAC team that came and evaluated her, they think she may need to the EDGAR'd. The patient is signed out to Dr. Nieves for continued evaluation. Re-Evaluation/Progress : Time of Eval: 13:28 )( Re-Eval Psychiatric: No danger to self Re-Evaluation/Progress Note: Discussed plan for discharge. Patient does not want to leave. Consultation #1: Note: Discussed pt's case with staff familiar with her at [facility]. They report that pt goes through cycles and presents with these symptoms every month and a half or so. Pt is normally pleasant and today she is not her normal self. Will consult with social work. Pt is handed her medications one dose at a time and called the ambulance herself to report and overdose. Consultation #2: Consulted With: forming process worker Call Returned at: 13:52 Note: Discussed pt's case with social work. Will contact pt's PACT team. Consultation #3: Consulted With: forming process worker Call Returned at: 14:06 Note: Pt's PACT team is on their way to see the pt. Counseled Regarding: Diagnosis, Lab results, Need for follow-up, When/why to return to ED Discharge & Departure Shift Change Sign-Out Patient Care Transferred: Yes Discussed Complaint(s): Yes Laboratory Evaluation: Back, reviewed by me Additonal Information: Transfer of care to Dr. Malhotra at 1500 Impression: Primary Impression: Acute situational disturbance Discharge Condition All VS Reviewed: Yes Condition: Stable Referrals: OTHER,PHYSICIAN (PCP) Care Transferred to: Dr. Malhotra Care Transferred at: 15:00 Jonathan Attestation Portions of this note were transcribed by José Antonio Tierney. I, Dr. Henley personally performed the history, physical exam and medical decision-making; I reviewed and confirmed the accuracy of the information in the transcribed note. Signed by: Jonathan Olson, 12/09/16 Emily Henley MD Dec 09, 2016 11:29 JOSÉ ANTONIO TIERNEY Dec 09, 2016 11:37
[2016-12-09] MEDS ORDERED: Ammonia Aromatic Inhalant Ampule INHALATION ONE (11:31)
[2016-12-09 12:04] VITALS: BP 128/78; PULSE 58; RESP 17; O2SAT 96
[2016-12-09] MEDS ORDERED: 0.9% Sodium Chloride 500 ML IV ONE (12:15)
[2016-12-09 12:29] LABS: BASOPHILS % (AUTO) 0.6 % (0-3); EOSINOPHILS % (AUTO) 2.6 % (0-5); Mean Corpuscular Hemoglobin 32.6 pg (27.0-35.0); Mean Corpuscular Volume 97.1 fL (81-100); NEUTROPHILS % (AUTO) 52.1 % (40-74); Platelet Count 232 bil/L (150-400)
[2016-12-09 13:34] VITALS: BP 122/76; PULSE 1; RESP 16; O2SAT 97
[2016-12-09 19:12] VITALS: PULSE 76; RESP 20; O2SAT 97
[2016-12-09 20:06] LABS: APPEARANCE,URINE CLEAR (CLEAR,HAZY); COLOR,URINE YELLOW (YELLOW); OCCULT BLOOD,URINE NEGATIVE (NEGATIVE); PH,URINE 5.5 (5.0-8.0); UROBILINOGEN,URINE NORMAL (NORMAL)
[2016-12-09 23:15] VITALS: BP 112/76; PULSE 67; RESP 20; O2SAT 97
[2016-12-09] MEDS ORDERED: Haloperidol 5 mg/mL Inj IM PRN (23:30)
== END 2016-12-10 00:15 | disposition other institution (70) ==
LOC: SED 11:19 → EDBD 11:19 → SED 12-10 00:15
DX: F43.0 Acute stress reaction (principal); F29 Unspecified psychosis not due to a substance or known physiological condition
CPT/HCPCS: 36415; 80053; 81000; 81002; 83735; 84443; 85025; 93005; 96372; 99285; G0480; J1630; J7040